=== PATIENT | male | born 1960 | race Caucasian/White ===

== ENCOUNTER 2023-06-10 09:47 | Day surgery (SDC) | payer OTHER ==
[~2023-06-10] VITALS: Ht 177.8 cm; Wt 81.6 kg
[~2023-06-10 09:47] MED LIST: ATOR1TAB21 PO
[2023-06-10] MEDS: NS 1,000 ML IV ONE (10:21)
[2023-06-10] MEDS ORDERED: LIDOCAINE 2% 100MG/5ML SDV (FOR ANES.) As Ordered ONE (11:05)
[2023-06-10] MEDS ORDERED: propofoL 200 MG/20 ML VIAL As Ordered ONE (11:05)
[2023-06-10] MEDS ORDERED: GLYCOPYRROLATE INJ 0.2 MG/ML 2 ML VIAL As Ordered ONE (12:06)
[2023-06-10] MEDS ORDERED: ATROPINE SULF 0.4 MG/ML 1ML VIAL As Ordered ONE (12:09)
[2023-06-10] MEDS ORDERED: SIMETHICONE 40MG/0.6ML DROPS 30ML As Ordered ONE (12:17)
[2023-06-10 12:26] VITALS: TEMP 97.3
[2023-06-10 12:49] VITALS: BP 133/77; O2SAT 98
== END 2023-06-10 12:52 | disposition home or self-care (01) ==
LOC: M OPP 09:47
PROVIDERS: ATTEND Surgery
DX: Z12.11 Encounter for screening for malignant neoplasm of colon (principal); K57.30 Diverticulosis of large intestine without perforation or abscess without bleeding; Z79.02 Long term (current) use of antithrombotics/antiplatelets; Z88.2 Allergy status to sulfonamides